=== PATIENT | female | born 2000 | race Caucasian/White ===

== ENCOUNTER 2021-08-09 12:15 | Emergency (ER) | payer OTHER ==
[2021-08-09 13:52] LABS: HEMOGLOBIN 13.5 gm/dl (12.3-15.3); RED BLOOD COUNT 4.5 M/UL (4.00-5.10); WHITE BLOOD COUNT 6.9 K/UL (4.5-11.0)
[2021-08-09 15:16] LABS: BUN/CREATININE RATIO 11 (0-10)
[2021-08-09] MEDS ORDERED: MACROBID 100 M100 M1 PO (17:23)
== END 2021-08-09 17:45 | disposition home or self-care (01) ==
LOC: ER1 12:15
PROVIDERS: Physician Assistant
DX: N39.0 Urinary tract infection, site not specified (principal); R19.7 Diarrhea, unspecified; Z88.1 Allergy status to other antibiotic agents
CPT/HCPCS: 80048; 81001; 85025; 99284

== ENCOUNTER 2021-10-08 02:15 | Inpatient (IN) | payer OTHER ==
[~2021-10-08] VITALS: Ht 162.6 cm; Wt 70.8 kg
[~2021-10-08 02:15] MED LIST: MACROBID 100 M100 M1 PO
[2021-10-08 03:57] LABS: HEMOGLOBIN 15.2 gm/dl (12.3-15.3); RED BLOOD COUNT 5.02 M/UL (4.00-5.10); WHITE BLOOD COUNT 12.1 K/UL (4.5-11.0)
[2021-10-08 04:01] LABS: BUN/CREATININE RATIO 15 (0-10)
[2021-10-08 05:29] LABS: ADENOVIRUS F 40/41 Not Detected (Negative); ASTROVIRUS Not Detected (Negative); CAMPYLOBACTER Not Detected (Negative); CRYPTOSPORIDIUM Not Detected (Negative); E.COLI 0157 Not Detected (Negative); ENTAMOEBA HISTOLYTICA Not Detected (Negative); ENTEROAGGREGATIVE E.COLI (EAEC Not Detected (Negative); ENTEROPATHOGENIC E.COLI (EPEC) Not Detected (Negative); ENTEROTOXIGENIC E.COLI (ETEC) Not Detected (Negative); GIARDIA LAMBLIA Not Detected (Negative); PLESIOMONAS SHIGELLOIDES Not Detected (Negative); ROTOVIRUS A Not Detected (Negative); SALMONELLA Not Detected (Negative); SAPOVIRUS Not Detected (Negative); SHIG/ENTEROINVAS.ECOLI (EIEC) Not Detected (Negative); SHIGA-LIK TOX.PRO.E.COLI (STEC Not Detected (Negative); VIBRIO Not Detected (Negative); VIBRIO CHOLERAE Not Detected (Negative); YERSINIA ENTEROCOLITICA Not Detected (Negative)
[2021-10-08 08:45] LABS: CLOSTRIDIUM DIFFICILE TOX A/B Not Detected (Negative)
[2021-10-08 08:46] LABS: NOROVIRUS GI/GII DETECTED (Negative)
[2021-10-08] MEDS ORDERED: CETIRIZINE HCL10 MG PO (11:39)
[2021-10-08] MEDS ORDERED: ESCITALOPRAM OXA5 MG PO (11:39)
[2021-10-08] MEDS ORDERED: ORILISSA150 MG PO (11:39)
[2021-10-09 04:05] LABS: RED BLOOD COUNT 4.41 M/UL (4.00-5.10); WHITE BLOOD COUNT 3.4 K/UL (4.5-11.0)
[2021-10-09 04:47] LABS: BUN/CREATININE RATIO 13 (0-10)
[2021-10-10 03:12] LABS: HEMOGLOBIN 13.4 gm/dl (12.3-15.3); RED BLOOD COUNT 4.51 M/UL (4.00-5.10)
[2021-10-10 03:40] LABS: BUN/CREATININE RATIO 17 (0-10)
[2021-10-10 04:00] LABS: WHITE BLOOD COUNT 5.6 K/UL (4.5-11.0)
--- NOTE | 2021-10-10 05:56 | NUR ---
PT HAVING A LOT OF OUTPUT FROM COLOSTOMY AND WORRIED ABOUT DEHYDRATION. NOTIFIED MD AND RECIEVED ORDERS. WILL CONTINUE TO MONITOR.
[2021-10-11 06:08] LABS: HEMOGLOBIN 12.7 gm/dl (12.3-15.3); RED BLOOD COUNT 4.34 M/UL (4.00-5.10); WHITE BLOOD COUNT 4.3 K/UL (4.5-11.0)
[2021-10-11 06:40] LABS: BUN/CREATININE RATIO 23 (0-10)
[2021-10-11] MEDS ORDERED: HYDROCODON-ACE1 EAC4 PO (12:49)
[2021-10-11] MEDS ORDERED: PYRIDIUM100 MG PO (12:49)
== END 2021-10-11 15:49 | disposition home or self-care (01) | DRG 690 ==
LOC: ER1 02:15 → MED SURG 4 09:41 → CDU 09:41 → MED SURG 4 11:58
PROVIDERS: Emergency Medicine; Physician Assistant; ADMIT Internal Medicine
DX: N30.00 Acute cystitis without hematuria (principal); A08.11 Acute gastroenteropathy due to Norwalk agent; Z20.822 Contact with and (suspected) exposure to COVID-19; N83.202 Unspecified ovarian cyst, left side; J30.2 Other seasonal allergic rhinitis; F41.9 Anxiety disorder, unspecified; Z93.3 Colostomy status; Z87.11 Personal history of peptic ulcer disease; Z90.49 Acquired absence of other specified parts of digestive tract
CPT/HCPCS: 36415; 76830; 80048; 80053; 81001; 82533; 83605; 83735; 84100; 84439; 84443; 84702; 84703; 85025; 86140; 87040; 87086; 87507; J0696; J1170; J1650; J2270; J2405; J2543; J2550; Q9967; U0002